=== PATIENT | female | born 1950 | race Caucasian/White ===

== ENCOUNTER 2017-06-04 05:22 | Emergency (ER) | payer MEDICARE ==
[~2017-06-04] VITALS: Ht 167.6 cm; Wt 56.7 kg
[2017-06-04] MEDS ORDERED: RALOXIFENE HCL60 MG PO (05:34)
[2017-06-04] MEDS ORDERED: METOPROLOL SUCC25 MG PO (05:34)
[2017-06-04] MEDS ORDERED: ASPIR-LOW81 MG PO (05:35)
--- NOTE | 2017-06-04 08:30 | EKG ---
[facility] [address] [facility] [place] [address] Signed Marked sinus bradycardia with frequent premature ventricular complexes Possible Left atrial enlargement T wave abnormality, consider inferior ischemia Abnormal ECG No previous ECGs available Confirmed by FISH FRITZ MD ([id number] on 06/04/2017 8:30:20 AM Electronically Signed By: FISH FRITZ MD 06/04/17 0830 PATIENT NAME: HARJITJADON KAY Electrocardiogram DATE OF : 54 PHYSICIAN: FISH FRITZ MD REPORT #: [id number] REPORT IS CONFIDENTIAL AND NOT TO BE RELEASED WITHOUT AUTHORIZATION
== END 2017-06-04 07:00 | disposition short-term general hospital (02) ==
LOC: ED 05:22
DX: I49.3 Ventricular premature depolarization (principal); I49.9 Cardiac arrhythmia, unspecified; I10 Essential (primary) hypertension; Z79.899 Other long term (current) drug therapy; Z79.82 Long term (current) use of aspirin
CPT/HCPCS: 71010; 80053; 83735; 84484; 85025; 93005; 93010; 96374; 99285; J2060

== ENCOUNTER 2023-02-19 04:08 | Emergency (ER) | payer MEDICARE ==
[~2023-02-19] VITALS: Ht 167.6 cm; Wt 60.6 kg
[~2023-02-19 04:08] MED LIST: ASPIR-LOW81 MG PO; KRILL OIL500 MG PO; LIPITOR10 MG PO; LISINOPRIL10 MG PO; LISINOPRIL20 MG PO; METOPROLOL SUC100 MG PO; METOPROLOL SUCC25 MG PO; RALOXIFENE HCL60 MG PO; VITAMIN B122500 MC1 PO; VITAMIN D5000 UNIT PO
--- OUTSIDE RECORDS SUMMARY | 2023-02-19 04:15 | XMS ---
PreManage Notification: JADON LOMBARDI Security Emergency Department Events No recent Security Events currently on file CRITERIA MET - [facility] - 2 Visits in 30 Days CARE PROVIDERS There are no care providers on record at this time. [place] has no Care Guidelines for this patient. [facility] VISIT COUNT (12 MO.) 1 [facility] 2 NOTE: Visits indicate total known visits. ED/UCC VISIT TRACKING (12 MO.) [facility] COMPLAINT: - HIP PAIN 02/18/2023 07:37 [facility] TYPE: Emergency DIAGNOSES: - Acute cystitis without hematuria - Flank Pain INPATIENT VISIT TRACKING (12 MO.) No inpatient visits to display in this time frame [email or web address]
[2023-02-19] MEDS ORDERED: SPIRONOLACTONE25 MG PO (04:19)
[2023-02-19] MEDS ORDERED: CEPHALEXIN500 MG PO (04:20)
[2023-02-19] MEDS ORDERED: METHYLPREDNISOLO4 M1 PO (05:02)
[2023-02-19] MEDS ORDERED: LIDODERM1 EACH TOP (05:02)
[2023-02-19 05:10] VITALS: BP 107/65
== END 2023-02-19 05:10 | disposition home or self-care (01) ==
LOC: ED 04:08
DX: G57.02 Lesion of sciatic nerve, left lower limb (principal); I10 Essential (primary) hypertension; Z79.899 Other long term (current) drug therapy; Z79.82 Long term (current) use of aspirin
CPT/HCPCS: 96372; 99283; J1100

== ENCOUNTER 2024-09-28 03:41 | Emergency (ER) | payer MEDICARE, OTHER ==
[~2024-09-28] VITALS: Ht 165.1 cm; Wt 61.3 kg
[~2024-09-28 03:41] MED LIST changes: +CEPHALEXIN500 MG PO; +LIDODERM1 EACH TOP; +METHYLPREDNISOLO4 M1 PO; +SPIRONOLACTONE25 MG PO
[2024-09-28] MEDS ORDERED: METOPROLOL SUCC50 MG PO (03:53)
[2024-09-28 04:06] LABS: EOSINOPHILS 2.3 % (0-6); HEMATOCRIT 44.7 % (35.0-50.0); HEMOGLOBIN 15.5 g/dL (12.0-18.0); LYMPHOCYTES 36.8 % (24-44); MCH 31.2 (27-36); MCHC 34.5 g/dl (30-36); MCV 90.4 fl (81-99); MONOCYTES 7.5 % (0-12); NEUTROPHILS 52.4 % (39-80); PLATELET COUNT 358 K/uL (140-440); RBC 4.95 M/ul (4.3-5.7); RDW 13.9 (10.5-15.0)
[2024-09-28 04:32] LABS: ALBUMIN 4.3 g/dL (3.4-5.0); ALBUMIN/GLOBULIN RATIO 1.19 (1.1-2.4); ANION GAP 12.7 (7-21); BILIRUBIN, TOTAL 0.5 mg/dL (0.2-1.0); BUN/CREATININE RATIO 25.92 (6.0-28.6); CALCIUM 9.4 mg/dL (8.5-10.1); CREATININE, SERUM 0.81 mg/dL (0.55-1.02); MAGNESIUM 2.1 mg/dL (1.8-2.4); POTASSIUM 3.7 mmol/L (3.5-5.1); PROTEIN, TOTAL 7.9 g/dL (6.4-8.2); TSH, 3RD GENERATION 1.378 uIU/mL (0.358-3.740)
[2024-09-28 05:33] VITALS: BP 121/66
--- NOTE | 2024-09-29 17:12 | EKG ---
[facility] [address] [facility] [place] [address] Signed Sinus rhythm with occasional premature ventricular complexes Nonspecific ST and T wave abnormality Abnormal ECG When compared with ECG of 04-JUN-2017 05:33, ST now depressed in Anterior leads T wave inversion no longer evident in Inferior leads T wave inversion now evident in Anterolateral leads Confirmed by Kishor Rinaldi MD ([id number]) on 09/29/2024 5:12:13 PM Electronically Signed By: KISHOR RINALDI MD 09/29/24 1712 PATIENT NAME: HARJITJADON KAY Electrocardiogram DATE OF : 54 PHYSICIAN: KISHOR RINALDI MD REPORT #: [id number] REPORT IS CONFIDENTIAL AND NOT TO BE RELEASED WITHOUT AUTHORIZATION
== END 2024-09-28 05:34 | disposition home or self-care (01) ==
LOC: ED 03:41
PROVIDERS: Internal Medicine
DX: R00.2 Palpitations (principal); R07.89 Other chest pain; Z98.890 Other specified postprocedural states; I10 Essential (primary) hypertension; Z88.5 Allergy status to narcotic agent; Z79.899 Other long term (current) drug therapy
CPT/HCPCS: 36415; 71045; 80053; 83735; 83880; 84443; 84484; 85025; 93005; 93010; 99285-25